=== PATIENT | female | born 1985 | race Caucasian/White ===

== ENCOUNTER → 2018-07-26 | Outpatient (CLI) | payer BC | LOC: SUN.DIA 12:58 | DX: O24.419 Gestational diabetes mellitus in pregnancy, unspecified control (principal); Z3A.30 30 weeks gestation of pregnancy | CPT/HCPCS: G0108 ==

== ENCOUNTER → 2018-08-08 | Outpatient (CLI) | payer BC | LOC: SUN.DIA 14:05 | DX: O24.419 Gestational diabetes mellitus in pregnancy, unspecified control (principal); Z3A.32 32 weeks gestation of pregnancy | CPT/HCPCS: G0108 ==

== ENCOUNTER → 2018-09-11 | Outpatient (CLI) | payer BC | LOC: DIA.ED 15:27 | DX: O24.419 Gestational diabetes mellitus in pregnancy, unspecified control (principal); Z3A.33 33 weeks gestation of pregnancy | CPT/HCPCS: G0108 ==

== ENCOUNTER 2018-10-07 08:11 | Inpatient (IN) | payer BC ==
[~2018-10-07] VITALS: Ht 175.3 cm; Wt 108.2 kg
[2018-10-07] VITALS (8 sets, daily range): BP systolic 120–145; BP diastolic 60–84; PULSE 53–75; TEMP 98.1
[2018-10-07] MEDS ORDERED: LAMICTAL ODT50 MG TL (19:17)
[2018-10-07] MEDS ORDERED: FOLIC ACID 40400 MCG PO (19:17)
[2018-10-07] MEDS ORDERED: PRENATAL FORMU1 EAC3 PO (19:18)
[2018-10-07 20:59] LABS: BASO % 0.4 % (0.0-2.0); EOS # 0.1 (0.0-0.7); GRAN # 6.2 (1.4-6.5); GRAN % 66.1 % (42.2-75.2); HEMOGLOBIN 12.4 g/dl (12.5-16.0); LYMPH # 2.3 (1.2-3.4); MEAN CELL VOLUME 89 fl (80.0-100.0); MEAN CORPUSCULAR HEMOGLOBIN 31 pg (27.0-31.0); MEAN CORPUSCULAR HGB CONC 35 g/dl (33.0-37.0); MEAN PLATELET VOLUME 13.6 fl (7.4-10.4); MONO # 0.8 (0.1-0.6); PLATELET COUNT 162 K/mm3 (130-400); RED BLOOD COUNT 3.95 M/mm3 (4.10-5.30); REDCELL DISTRIBUTION WIDTH-CV 12.8 % (11.5-14.5)
[2018-10-07 21:03] LABS: HEMATOCRIT 35.2 % (37.0-47.0)
[2018-10-08] VITALS (75 sets, daily range): BP systolic 99–154; BP diastolic 53–104; PULSE 46–103; TEMP 97.8–98.4
--- NOTE | 2018-10-08 06:30 | NUR ---
Report recieved from Mariel TAN. Patient sleeping on right side. 0710: Dr. Jacobo at bedside and assessing patient and FHR strip. SVE-0-/-[address] Jacobo. 0715: Patient off monitor to void/ambulate/eat breakfast. 0730: Patient back on monitor. Plan of care discussed. 0825: Dr. Jacobo at bedside and assessing patient/FHR strip. SVE-per physician-/-2 and AROM done with clear fluid noted. FHR baseline 125-130bpm and after AROM FHR decreasing to 70-90bpm for approx. 2.[address] Jacobo at bedside. Patient wedged left and FHR increasing to 90-110bpm for approx. minutes and baseline increasing to 120-125bpm. 0854: Patient feeling more pressure/uncomfortable with contractions. Patient off monitor to void. 0910: Patient back on monitor and requesting epidural.
--- NOTE | 2018-10-08 07:05 | NUR ---
Dr. Jacobo at nurses station and updated on patient. Physician orders to start pitocin now. 0732: Pitocin started at 2Mu.
--- NOTE | 2018-10-08 09:22 | NUR ---
Patient sitting up for epidural and difficulty tracing FHR due to maternal position. 0925: Morteza MOLDING MACHINE OPERATOR HELPER at bedside for placement of epidural. 0934: Single dose given and patient tolerates well. 0940: Patient repositioned and plan of care/saftey instructions given.
--- NOTE | 2018-10-08 10:15 | NUR ---
Patient laid back for placement of lewis catheter. 1020: Patient states she is feeling very nauseated and looks pale, patient sat up and unable to get lewis at this time. Blood pressure- 101/54 and LR bolus increased. 1022: Ephedrine IV 10mg given at this time. Patient very pale, states she is light headed and nauseated. 1023: Blood Pressure-91/55 1028: BP-103/65 Patient states she if feeling better. 1035: BP-106/60 Will continue to monitor. 1055: Lewis catheter placed at this time and patient tolerates well. SVE-2/100/-1 1210: Dr. Jacobo at bedside and assessing patient/FHR strip. SVE per physician-4/100/0 and no new orders at this time.
[2018-10-08] MEDS ORDERED: MOTRIN 800800 MG/TAB PO (14:38)
[2018-10-08] MEDS ORDERED: PERCOCET 325 MG1 TA2 PO (14:38)
--- NOTE | 2018-10-08 16:20 | NUR ---
Dr Jacobo at bedside and assessing patient and FHR strip. SVE per physician-complete and orders to take out lewis catheter. 1625: Lewis catheter removed and patient tolerates well. Pushing instructions gone over and questions answered. 1630: Patient begins to push with Dr. Jacobo at this time. 1700: Patient continues to push and Dr. Jacobo intermittently at bedside pushing with patient to assess progress. Dr. Jacobo at nurses station assessing FHR strip
--- NOTE | 2018-10-08 17:45 | NUR ---
Patient continues to push with contractions. at bedside to assess progress and no new orders. 1800: Dr. Jacobo at bedside. 1820: Bedside report given to Serena TAN.
--- NOTE | 2018-10-08 19:40 | NUR ---
1849 - Dr. Jacobo at bedside evaluating pushing progress. Prolonged variable deceleration down to 70 bpm lasting about [address] Jacobo discussing use of vacuum at this time. Risks and benefits reviewed with patient, pt and spouse verbalized understanding. 1857 - Vacuum applied successfully by Dr. Jacobo. Vacuum pumped to green. Gentle traction applied by Dr. Jacobo while patient pushing with contraction. 1858 - Vacuum pop off. 1907 - Dr. Jacobo discussing plan of care with patient. Pt feeling very tired and ok with having a section at this time. section called by Dr. Jacobo. Pitocin off. 1919 - Skelton catheter placed to dependent drainage. Scant amount of blood tinged urine returned. 1924 - Incision site clipped by this RN. Scooter Payton CRNA at bedside. 1939 - OR clean, monitors removed and pt transferred to OR by labor bed. Per Dr. Jacobo do not need to check FHR in OR.
[2018-10-09] VITALS: BP 122/71; PULSE 69
[2018-10-09 01:00] VITALS: BP 131/76; PULSE 76
[2018-10-09 04:50] VITALS: BP 129/78; PULSE 75; TEMP 97.9
[2018-10-09 07:00] VITALS: BP 128/67; PULSE 97; TEMP 98.2
[2018-10-09 08:57] LABS: HEMOGLOBIN 10.5 g/dl (12.5-16.0); MEAN CELL VOLUME 91 fl (80.0-100.0); MEAN CORPUSCULAR HEMOGLOBIN 32 pg (27.0-31.0); MEAN CORPUSCULAR HGB CONC 35 g/dl (33.0-37.0); MEAN PLATELET VOLUME 13.1 fl (7.4-10.4); PLATELET COUNT 140 K/mm3 (130-400); REDCELL DISTRIBUTION WIDTH-CV 13.1 % (11.5-14.5)
[2018-10-09 09:09] LABS: ALBUMIN 2.3 gm/dL (3.5-5.0); BILIRUBIN,TOTAL 0.6 mg/dL (0.0-1.0); CALCIUM 7.9 mg/dL (8.4-10.2); CREATININE, serum 1.54 (0.52-1.25); POTASSIUM 5.2 mmol/L (3.4-5.0); TOTAL PROTEIN 4.6 gm/dL (6.4-8.2)
[2018-10-09 09:33] LABS: BAND 40 % (0-10); LYMPHOCYTE 6 % (20.0-51.0); NEUTROPHILS 51 % (42.0-75.2); PLATELET ESTIMATE NORMAL (NORMAL)
--- NOTE | 2018-10-09 10:16 | NUR ---
Initial visit; Parents thanked Lithograph Operator for offering congratulations and God's blessings for the of their son. Lithograph Operator thanked family for choosing [facility].
[2018-10-09 16:53] VITALS: BP 122/78; PULSE 78; TEMP 98.1
[2018-10-09 17:46] LABS: HEMOGLOBIN 10.9 g/dl (12.5-16.0); MEAN CELL VOLUME 93 fl (80.0-100.0); MEAN CORPUSCULAR HEMOGLOBIN 32 pg (27.0-31.0); MEAN CORPUSCULAR HGB CONC 34 g/dl (33.0-37.0); MEAN PLATELET VOLUME 12.8 fl (7.4-10.4); PLATELET COUNT 142 K/mm3 (130-400); RED BLOOD COUNT 3.41 M/mm3 (4.10-5.30); REDCELL DISTRIBUTION WIDTH-CV 13.2 % (11.5-14.5)
[2018-10-09 17:58] LABS: ALBUMIN 2.6 gm/dL (3.5-5.0); BILIRUBIN,TOTAL 0.6 mg/dL (0.0-1.0); CALCIUM 7.8 mg/dL (8.4-10.2); CREATININE, serum 1.53 (0.52-1.25); POTASSIUM 4.5 mmol/L (3.4-5.0); TOTAL PROTEIN 5.2 gm/dL (6.4-8.2)
[2018-10-09 18:37] LABS: HEMATOCRIT 31.7 % (37.0-47.0)
[2018-10-09 19:48] LABS: BAND 11 % (0-10); LYMPHOCYTE 8 % (20.0-51.0); NEUTROPHILS 80 % (42.0-75.2); PLATELET ESTIMATE NORMAL (NORMAL)
[2018-10-09 22:00] VITALS: BP 127/71; PULSE 87; TEMP 98.2
--- NOTE | 2018-10-10 06:30 | NUR ---
Pt up and ambulates in hallway. Pt c/o gas pains. VSS, assessment complete. Pt states she has not passed any gas at this time. 0730:Pt up to bathroom, pt feeling pressure and urge to have BM. Pt passses gas while on toilet. Pt back to bed. 0800:Pt up to bathroom with assist. Pt now passing gas and states she is feeling better. Dr Jacobo here and updated. Physician will review lab work this AM and call nurse if any further orders are needed. 0945:Skelton catheter removed. Pericare instructions given, pt back to bed.
[2018-10-10 07:09] LABS: ALBUMIN 2.5 gm/dL (3.5-5.0); BILIRUBIN,TOTAL 0.3 mg/dL (0.0-1.0); CALCIUM 8.2 mg/dL (8.4-10.2); CREATININE, serum 1.19 (0.52-1.25); POTASSIUM 4.3 mmol/L (3.4-5.0); TOTAL PROTEIN 5.1 gm/dL (6.4-8.2)
[2018-10-10 07:27] VITALS: BP 132/74; PULSE 85; TEMP 98.1
[2018-10-10 08:48] LABS: LYMPHOCYTE 6 % (20.0-51.0); NEUTROPHILS 90 % (42.0-75.2); PLATELET ESTIMATE NORMAL (NORMAL)
[2018-10-10 08:56] LABS: HEMOGLOBIN 10.5 g/dl (12.5-16.0); MEAN CELL VOLUME 92 fl (80.0-100.0); MEAN CORPUSCULAR HEMOGLOBIN 32 pg (27.0-31.0); MEAN CORPUSCULAR HGB CONC 35 g/dl (33.0-37.0); MEAN PLATELET VOLUME 12.4 fl (7.4-10.4); PLATELET COUNT 157 K/mm3 (130-400); RED BLOOD COUNT 3.31 M/mm3 (4.10-5.30); REDCELL DISTRIBUTION WIDTH-CV 13.5 % (11.5-14.5)
[2018-10-10 08:58] LABS: HEMATOCRIT 30.3 % (37.0-47.0)
[2018-10-10 17:00] VITALS: BP 143/70; PULSE 126; TEMP 98
[2018-10-10 19:00] VITALS: BP 127/69; PULSE 107; TEMP 98
[2018-10-11 03:18] VITALS: BP 108/61; PULSE 84; TEMP 98.2
[2018-10-11 06:45] VITALS: BP 115/66; PULSE 82; TEMP 98.2
[2018-10-11 06:45] LABS: MEAN CELL VOLUME 92 fl (80.0-100.0); MEAN CORPUSCULAR HGB CONC 34 g/dl (33.0-37.0); MEAN PLATELET VOLUME 12.4 fl (7.4-10.4); PLATELET COUNT 167 K/mm3 (130-400); RED BLOOD COUNT 2.76 M/mm3 (4.10-5.30); REDCELL DISTRIBUTION WIDTH-CV 13.5 % (11.5-14.5)
[2018-10-11 06:54] LABS: ALBUMIN 2.4 gm/dL (3.5-5.0); BILIRUBIN,TOTAL 0.3 mg/dL (0.0-1.0); CALCIUM 7.9 mg/dL (8.4-10.2); CREATININE, serum 0.86 (0.52-1.25); POTASSIUM 3.9 mmol/L (3.4-5.0); TOTAL PROTEIN 4.9 gm/dL (6.4-8.2)
[2018-10-11 07:03] LABS: HEMATOCRIT 25.4 % (37.0-47.0); HEMOGLOBIN 8.7 g/dl (12.5-16.0); MEAN CORPUSCULAR HEMOGLOBIN 32 pg (27.0-31.0)
[2018-10-11 07:41] LABS: BAND 15 % (0-10); LYMPHOCYTE 13 % (20.0-51.0); NEUTROPHILS 70 % (42.0-75.2); PLATELET ESTIMATE NORMAL (NORMAL)
== END 2018-10-11 14:20 | disposition home or self-care (01) | DRG 787 ==
LOC: LDR 08:11 → OB 10-09 00:18
PROVIDERS: ADMIT Obstetrics & Gynecology
PROC: 3E0P7GC Introduction of Other Therapeutic Substance into Female Reproductive, Via Natural or Artificial Opening (ICD-10-PCS; 2018-10-07)
PROC: 3E033VJ Introduction of Other Hormone into Peripheral Vein, Percutaneous Approach (ICD-10-PCS; 2018-10-07)
PROC: 10D00Z1 Extraction of Products of Conception, Low, Open Approach (ICD-10-PCS; principal; 2018-10-08)
PROC: 0UQ90ZZ Repair Uterus, Open Approach (ICD-10-PCS; 2018-10-08)
PROC: 0UQGXZZ Repair Vagina, External Approach (ICD-10-PCS; 2018-10-08)
DX: O24.420 Gestational diabetes mellitus in childbirth, diet controlled (principal); O71.4 Obstetric high vaginal laceration alone; O99.354 Diseases of the nervous system complicating childbirth; O99.214 Obesity complicating childbirth; O99.824 Streptococcus B carrier state complicating childbirth; O71.81 Laceration of uterus, not elsewhere classified; O62.0 Primary inadequate contractions; O66.5 Attempted application of vacuum extractor and forceps; G40.909 Epilepsy, unspecified, not intractable, without status epilepticus; Z3A.39 39 weeks gestation of pregnancy; Z37.0 Single live birth
CPT/HCPCS: J0690; J2175; J2250; J2370; J2400; J2405; J2540; J2590; J2795; J3010; J7120; Q9967

== ENCOUNTER → 2018-11-15 | Outpatient (CLI) | payer BC ==
[~2018-11-15] MED LIST: FOLIC ACID 40400 MCG PO; LAMICTAL ODT50 MG TL; MOTRIN 800800 MG/TAB PO; PERCOCET 325 MG1 TA2 PO; PRENATAL FORMU1 EAC3 PO
== END ==
LOC: COL.CARD 09:39
DX: G40.309 Generalized idiopathic epilepsy and epileptic syndromes, not intractable, without status epilepticus (principal)
CPT/HCPCS: A9585

== ENCOUNTER → 2023-08-15 | Outpatient (CLI) | payer BC | LOC: MC.RAD 11:16 | DX: Z12.31 Encounter for screening mammogram for malignant neoplasm of breast (principal); N63.10 Unspecified lump in the right breast, unspecified quadrant; N63.20 Unspecified lump in the left breast, unspecified quadrant; N64.89 Other specified disorders of breast ==

== ENCOUNTER → 2023-09-05 | Outpatient (CLI) | payer BC | LOC: MC.RAD 09:43 | DX: N63.10 Unspecified lump in the right breast, unspecified quadrant (principal) ==